=== PATIENT | female | born 1960 | race Caucasian/White ===

== ENCOUNTER 2017-12-06 02:26 | Emergency (ER) | payer OTHER ==
[~2017-12-06] VITALS: Ht 160 cm; Wt 38.6 kg
[2017-12-06] MEDS ORDERED: OXYCODONE HCL 55 MG PO (02:30)
[2017-12-06] MEDS ORDERED: LASIX 40 MG TAB40 M2 PO (02:31)
[2017-12-06] MEDS ORDERED: PROTONIX40 M1 PO (02:31)
[2017-12-06] MEDS ORDERED: CONSTULOSE10 GM/152 PO (02:31)
[2017-12-06] MEDS ORDERED: ALDACTONE50 MG PO (02:32)
[2017-12-06] MEDS ORDERED: LEVSIN0.125 MG SUBLING (02:33)
[2017-12-06] MEDS ORDERED: ROXANOL SUBLING (02:33)
[2017-12-06] MEDS ORDERED: APAP650 RECTAL (02:34)
[2017-12-06 03:53] VITALS: BP 90/34
== END 2017-12-06 04:58 | disposition home or self-care (01) ==
LOC: ER 02:26
DX: K72.90 Hepatic failure, unspecified without coma (principal); R64 Cachexia; Z68.1 Body mass index [BMI] 19.9 or less, adult